=== PATIENT | female | born 1970 | race Hispanic/Latino ===

== ENCOUNTER 2016-07-13 18:12 | Emergency (ER) | payer OTHER ==
[~2016-07-13] VITALS: Ht 157.5 cm; Wt 63.6 kg
[2016-07-13 18:31] VITALS: BP 114/65; PULSE 83; RESP 16; O2SAT 98
--- NOTE | 2016-07-13 19:24 | ED.REPORT ---
HPI-Chest Pain 40 and Over Date of Service July 13, 2016 ED Provider: Dr. Adama Lester MD A 46 year old female presents to the ED complaining of chest pain that began at 0400 this morning. Patient describes the pain as a tightness in her chest. The pain is often associated with cough and SOB. Patient has not taken any OTC medications to help relieve the pain. She denies fever. She denies any medication or cardiac history including hypertension. Nursing Notes Stated Complaint: CHEST PAIN, TROUBLE BREATHING Chief Complaint: Chest Pain-Non Cardiac Nature Nursing Notes Reviewed: Yes Allergies: Coded Allergies: No Known Allergies (Unverified Allergy, Unknown, 07/13/16) General Time Seen by MD: 19:24 Chief Complaint Chest pain Hx Obtained From: Patient Arrived By: Walk-in Sudden in Onset?: No Onset Occurred: 9 - 12 hours ago Symptom Duration: Since onset Location: : Chest left: Chest right Quality: Painful, Pressure Radiation: : Does not radiate Migration/Movement: Reports: None Severity: Current: Moderate Severity: Maximum: Moderate Associated with: Reports: Cough, non-productive, Shortness of Breath, Denies: Fever Pertinent Negative: Pt denies other symptoms Recent Healthcare: No recent doctor visit, No recent hospitalization Risk Factors )( CAD Risk Stratification Risk factors reviewed )( TAD Risk Stratification Risk factors reviewed )( PE Risk Stratification Risk factors reviewed Past Medical History Past Medical History Notes: No PCP Past Medical History Denies Denies: Hypertension Past Surgical History Pt denies Smoking History Current Every Day Smoker Social History Alcohol Use: Denies alcohol use Drug Use: Denies drug use Other Social History: Good social support, Local resident Ambulatory Status Independent Review of Systems Constitutional: Denies: Chills, Fever Respiratory: Reports: Non-productive cough, Shortness of breath, Wheezing Cardiovascular: Reports: Chest pain GI: Denies: Nausea, Vomiting Complete sys rev & neg: except as marked. Physical Exam Initial Vital Signs Vital Signs (First) Date Time Temp Pulse Resp B/P Pulse Ox O2 Delivery O2 Flow Rate FiO2 07/13/16 18:31 36.2 83 16 114/65 98 Room Air Initial VS: Reviewed Head / Eyes: Atraumatic, Normocephalic, PERRL Neck: Supple, Non-tender, Full range of motion Extremities: Vascular intact, Neuro intact, No swelling, No tenderness Skin: Warm, Dry, No cyanosis Neurologic: Alert, Oriented, Nonfocal Psychiatric: Mood/affect normal, Behavior normal, Normal thought content General/Constitutional: Awake, Alert, No acute distress Respiratory / Chest: Atraumatic, No respiratory distress Wheezing / Retractions: Positive: Wheezing moderate Cardiovascular: Heart rate NL, Regular rhythm, Heart sounds NL, No gallop, No murmurs, No rubs Abdomen: Atraumatic, Soft, Non-tender Interpretation & Diagnostics Lab Results Interpretation Result Diagram: 07/13/16192907/13/161929 Test 07/13/16 19:30 White Blood Count 8.7th/mm3 (3.8-10.1) Red Blood Count 4.42mil/mm3 (3.90-5.20) Hemoglobin 14.1g/dL (12.0-15.6) Hematocrit 41.0% (35.0-46.0) Mean Corpuscular Volume 92.8fL (81-100) Mean Corpuscular Hemoglobin 31.9pg (27.0-35.0) Mean Corpuscular Hemoglobin Concent 34.4% (32.0-37.0) Red Cell Distribution Width 12.7% (12.3-15.4) Platelet Count 206bil/L (150-400) Neutrophils (%) (Auto) 46.0% (40-74) Lymphocytes (%) (Auto) 42.3% (14-46) Monocytes (%) (Auto) 7.7% (4-12) Eosinophils (%) (Auto) 3.5% (0-5) Basophils (%) (Auto) 0.3% (0-3) Sodium Level 141mEq/L (134-144) Potassium Level 4.0mEq/L (3.5-5.2) Chloride Level 106mEq/L (97-108) Carbon Dioxide Level 21mmol/L (18-29) Blood Urea Nitrogen 10mg/dL (6-24) Creatinine 0.46mg/dL (0.57-1.00) Estimat Glomerular Filtration Rate 211mL/min (>59) Glucose Level 111mg/dL (60-99) Calcium Level 9.0mg/dL (8.5-10.1) Magnesium Level 2.0mg/dL (1.6-2.6) Total Bilirubin 0.2mg/dL (0.0-1.2) Aspartate Amino Transf (AST/SGOT) 22U/L (0-50) Alanine Aminotransferase (ALT/SGPT) 19U/L (0-32) Alkaline Phosphatase 63U/L (25-150) Troponin T < 0.010ug/L (0.0-0.011) Total Protein 6.8g/dL (6.4-8.4) Albumin 3.7g/dL (3.4-5.0) Hold Lew Top Tube Received (Received) ECG Interpretation ECG Interpretation: Normal Sinus Rhythm Rate 67 Time: 18:41 Interpreted by: ED physician X-Ray Chest Interpretation Chest Xray Interpretation: IMPRESSION: Negative chest Interpretation / Wet Read by: Wet read ED physician Re-Eval/Medical Decision Med Decision/Clinical Course 46-year-old female smoker with wheezing cough and chest pain. PERC rule satisfied, PE excluded. Normal troponin and EKG, given she has had pain since for the morning I do not believe we need to trend her troponins. No infiltrate on her chest x-ray. We will treat her with albuterol and a few Vicodin for her pain. Time of Eval: 21:21 Patient Status: Condition improved Re-Evaluation/Progress Note: She is informed of her lab results, chest x-ray and EKG. All of the patient's questions about her diagnosis and treatment plan are addressed. She understands and agrees with the treatment plan. Counseled Regarding: Diagnosis, Lab results, Need for follow-up, When/why to return to ED Discharge & Departure Primary Impression: Non-cardiac chest pain Additional Impression: Upper respiratory infection URI type: unspecified URI Qualified Code: J06.9 - Acute upper respiratory infection, unspecified Disposition: Home Discharge Condition All VS Reviewed: Yes Condition: Improved Patient Instructions: Noncardiac Chest Pain (ED), Upper Respiratory Infection ( ED) Additional Instructions: Thank you for trusting us with your care this evening. Your emergency department evaluation today included interview, examination, lab work, EKG and chest X-ray. Your results are reassuring that there is no immediate cause for concern at this time and your symptoms are likely due to a viral infection. Expect to be coughing for 3-4 weeks. albuterol 2 puffs every 4 hours as needed for wheeze/cough. Hydrocodone/apap 1 every 4 hours as needed for pain, ibuprofen 600mg every 6 hours will also be helpful. Call to set up primary care at [facility] resident's clinic. Please return to the emergency department if you develop any new or worsening symptoms including any worsening chest pain, shortness of breath, fever, chills , or uncontrollable vomiting. Referrals: Marietta Mccall MD (PCP) [facility] Scribe Attestation Portions of this note were transcribed by Shekhar Crowley. I, Dr. Lester personally performed the history, physical exam and medical decision-making; I reviewed and confirmed the accuracy of the information in the transcribed note. Signed by: Bernie Martinez, 07/13/16 2147. copies to: Marietta Mccall MD, Donald L MD July 13, 2016 19:24 SHEKHAR CROWLEY July 13, 2016 19:29
[2016-07-13] MEDS ORDERED: _Proair 200 Puff/8.5 GM Inhaler INHALATION PRN (19:40)
[2016-07-13 19:42] LABS: BASOPHILS % (AUTO) 0.3 % (0-3); EOSINOPHILS % (AUTO) 3.5 % (0-5); MONOCYTES % (AUTO) 7.7 % (4-12); Mean Corpuscular Hemoglobin 31.9 pg (27.0-35.0); Mean Corpuscular Volume 92.8 fL (81-100); Platelet Count 206 bil/L (150-400)
--- NOTE | 2016-07-13 19:55 | DRSVH ---
PROCEDURE: X-RAY CHEST ONE VIEW, PORTABLE ([id number]) INDICATIONS: pain TECHNIQUE: One view of the chest was acquired. COMPARISON: [facility], , CHEST 1VW (PORTABLE), 02/13/2014, 11:02. FINDINGS: Surgical changes and devices: None. Lungs and pleura: No pleural effusions or pneumothorax. Lungs are clear. Mediastinum: Mediastinal contours appear normal. Heart size is normal. Bones and chest wall: No suspicious bony lesions. Overlying soft tissues appear unremarkable. IMPRESSION: The chest radiograph. Dictated by: Timbo Hansen M.D. on 07/13/2016 at 19:44 Approved by: Timbo Hansen M.D. on 07/13/2016 at 19:48
[2016-07-13 20:07] LABS: TROPONIN T < 0.010 ug/L (0.0-0.011)
[2016-07-13] MEDS ORDERED: HYDROcodone-APAP 5-325 mg Tablet PO ONE (20:55)
[2016-07-13] MEDS ORDERED: _HYDROcodone/APAP 5-325 mg Tablet PO PRN (20:55)
[2016-07-13 21:40] VITALS: BP 128/68; PULSE 84; RESP 14; O2SAT 98
== END 2016-07-13 21:43 | disposition home or self-care (01) ==
LOC: SED 18:12
DX: R07.89 Other chest pain (principal); J06.9 Acute upper respiratory infection, unspecified; F17.200 Nicotine dependence, unspecified, uncomplicated